=== PATIENT | male | born 1935 | race Caucasian/White ===

== ENCOUNTER 2022-12-02 10:44 | Emergency (ER) | payer OTHER, MEDICARE ==
[~2022-12-02] VITALS: Ht 177.8 cm; Wt 87.1 kg
[2022-12-02 10:47] VITALS: BP 158/79
[2022-12-02 11:07] LABS: BASOPHILS % (AUTO) 0.1 % (0.0-5.0); EOSINOPHILS % (AUTO) 2.7 % (0.0-8.0); LYMPHOCYTES % (AUTO) 19.7 % (21.0-51.0); MEAN CORPUSCULAR HEMOGLOBIN 29.1 pg (27.0-33.0); MEAN CORPUSCULAR HGB CONC 32.3 g/dL (32.0-36.0); MEAN CORPUSCULAR VOLUME 90.1 fL (79-99); MONOCYTES % (AUTO) 9.1 % (3.0-13.0); NEUTROPHILS % (AUTO) 67.8 % (40.0-77.0); PLATELET COUNT (AUTO) 167 K/uL (130-400); RED BLOOD CELL COUNT(AUTO) 5.33 MIL/uL (4.50-6.20); RED CELL DISTRIBUTION WIDTH 14.7 % (11.0-15.5); WHITE BLOOD COUNT (AUTO) 8.7 K/uL (4.8-10.8)
[2022-12-02] MEDS ORDERED: IPRATROPIUM/ALBUTEROL SULFATE 3 ML SOLUTION IH ONE (11:30)
[2022-12-02 11:43] LABS: POTASSIUM 4.5 mmol/L (3.5-5.1); TOTAL PROTEIN, SERUM 7.5 g/dL (6.0-8.3)
[2022-12-02] MEDS ORDERED: ALBU6.7H14 IH (13:57)
[2022-12-02] MEDS ORDERED: PRED20TA3 PO (15:17)
== END 2022-12-02 16:16 | disposition home or self-care (01) ==
LOC: EDH 10:44
DX: R06.02 Shortness of breath (principal); J44.9 Chronic obstructive pulmonary disease, unspecified; I10 Essential (primary) hypertension; E78.00 Pure hypercholesterolemia, unspecified; E11.9 Type 2 diabetes mellitus without complications; Z20.822 Contact with and (suspected) exposure to COVID-19; Z79.52 Long term (current) use of systemic steroids; Z79.51 Long term (current) use of inhaled steroids
CPT/HCPCS: 99285; 71045; 87635; 84484; 80053; 83880; 85025; 87804 ×2; 36415; 93005; 94640; 94760 ×2; C9803